=== PATIENT | female | born 1950 ===

== ENCOUNTER 2018-10-17 18:01 | Emergency (ER) | payer MEDICARE, BC ==
[2018-10-17] MEDS ORDERED: Dextrose 5%-0.9% NaCl 1,000 ML IV SCH (18:30)
--- NOTE | 2018-10-17 18:50 | EDM.PDOC ---
ED HPI GENERAL MEDICAL PROBLEM - General Chief Complaint: Neuro Symptoms/Deficits Stated Complaint: VISION PROBLEMS/HEAD PAIN/L SIDE NUMBNESS Time Seen by Provider: 10/17/18 18:21 Source of Information: Reports: Patient, Family (spouse) History Limitations: Reports: No Limitations - History of Present Illness INITIAL COMMENTS - FREE TEXT/NARRATIVE: 68-year-old female attends the ED due to very blurred vision this morning when she first got up. She was unable to read a magazine or written word at all. This provoked her to set up an correctional counselor/case manager appointment and she's did see Dr. Humphrey and had a complete eye examination. No abnormalities were found in terms that her peripheral vision was apparently normal. There was no glaucoma and there was no retinal disease. Was advised to seek further medical care particular for central nervous system imaging to make sure there was no increased intracranial pressure and pituitary tumor pressing on the optic chiasm to cause her current problems although the patient does not report any diplopia. Secondly she has some pain in her left forehead left scott-face that radiates down her left neck into her left arm. Patient has known severe degenerative disc disease in her cervical spine. She therefore presented with some concerns about a stroke. Of course strokes do not cause pain. Patient used to weigh 124 pounds but since multiple back surgeries she is currently down to 98 pounds. She is not on a lot of medications. My concern with her history is whether she is suffering anticholinergic effect of medication to cause transient blurred vision. Neuro exam was grossly normal. Is having no trouble with her speech and no trouble walking. She does have some paresthesias in both arms and hands which may or may not be carpal tunnel syndrome related versus cervical spine joint of disc disease related. Onset: Today Onset Date: 10/17/18 Onset Time: 08:00 Duration: Hour(s): Location: Reports: Face (Blurred vision both eyes this morning making it impossible to read a magazine. Left hemifacial pain rating across her left lateral neck down into her left), Neck ( seems to be coming from her cervical spine. chronic neck pain), Back (Chronic low back pain), Upper Extremity, Left ( upper extremity.) Quality: Reports: Other (Pain in the arm is) Severity: Moderate (deep aching with occasional sharp lancinating pain) Improves with: Reports: Other (Blurred vision has improved as the day has gone on.) Worsens with: Reports: Movement (Movements will make her neck pain worse and her left arm pain worse suggesting radiculopathy.) Context: Denies: Activity, Exercise, Lifting, Sick Contact, Trauma, Other Associated Symptoms: Denies: No Other Symptoms, Confusion, Chest Pain, Cough, cough w sputum, Diaphoresis, Fever/Chills, Headaches, Loss of Appetite, Malaise , Nausea/Vomiting, Rash, Seizure, Shortness of Breath, Syncope Treatments [employer]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 (see below) (Only her usual medications.) - Related Data Allergies Allergy/AdvReac Type Severity Reaction Status Date / Time No Known Allergies Allergy Verified 10/17/18 18:23 Home Meds: Home Meds Beta-Carotene(A) W-C & E/Min [Vision Vitamins] 1 each PO DAILY 10/17/18 [History ] Biotin 1 mg PO DAILY 10/17/18 [History] Cholecalciferol (Vitamin D3) [Vitamin D3] 1,000 unit PO DAILY 10/17/18 [History] DULoxetine HCl [Duloxetine HCl] 30 mg PO DAILY 10/17/18 [History] Flecainide Acetate 50 mg PO BID 10/17/18 [History] Ibuprofen 800 mg PO TID PRN 10/17/18 [History] Magnesium Gluconate 27 mg PO DAILY 10/17/18 [History] Thiamine HCl [Vitamin B-1] 250 mg PO DAILY 10/17/18 [History] Vitamin B6-pyridOXINE 100 mg PO DAILY 10/17/18 [History] hydroCHLOROthiazide [Hydrochlorothiazide] 12.5 mg PO DAILY 10/17/18 [History] Past Medical History Cardiovascular History: Reports: Arrhythmia (Currently on Tiffany and 950 mg twice a day.), Hypertension Social & Family History - Living Situation & Occupation Living situation: Reports: (Currently here in [employer] babysitting grand children. Currently her retired from [employer] and moved to [place]. ) Occupation: Retired ED ROS GENERAL - Review of Systems Review Of Systems: See Below Constitutional: Reports: Malaise, Fatigue, Weight Loss (Stable weight at 98 pounds.), Other (Feel she has a good appetite.). Denies: Fever, Chills HEENT: Reports: Glasses (Blurred vision), Other. Denies: Ear Pain, Eye Discharge, Eye Pain, Hearing Loss, Nosebleed, Nose Pain, Rhinitis, Throat Pain, Throat Swelling Respiratory: Reports: No Symptoms Cardiovascular: Reports: Lightheadedness ( sometimes aware of palpitations.), Palpitations (Has a chronic arrhythmia), Other Endocrine: Reports: Fatigue GI/Abdominal: Reports: No Symptoms : Reports: No Symptoms Musculoskeletal: Reports: Neck Pain, Shoulder Pain, Arm Pain (Left side left arm pain), Back Pain, Hand Pain (And numbness and tingling both sides.) Skin: Reports: No Symptoms ( Unclear if this represents carpal tunnel or is referred pain from her cervical spine.) Neurological: Reports: Numbness, Paresthesia ( suggesting to me that she has carpal tunnel syndromeboth upper extremities primarily her hands. ), Tingling ( In both upper extremities to her hands) Psychiatric: Reports: Anxiety Hematologic/Lymphatic: Reports: No Symptoms Immunologic: Reports: No Symptoms ED EXAM, NEURO - Physical Exam Exam: See Below Exam Limited By: No Limitations General Appearance: Alert, WD/WN, Anxious (Mildly anxious.) Eye Exam: Bilateral Eye: Normal Fundi, Normal Inspection, PERRL (No diplopia or gaze palsy) Throat/Mouth: Normal Inspection, Normal Lips, Normal Oropharynx, Other Head Exam: Atraumatic (Uvula is in the midline), Normocephalic Neck: Normal Inspection, Supple, Limited Range of Motion, Tender Lateral ( Bilaterally particularly lower cervical spine.). No: Full Range of Motion, Lymphadenopathy (L), Lymphadenopathy (R) Respiratory/Chest: Lungs Clear, Normal Breath Sounds (Mild tachypnea but O2 sats 100%. She is mildly anxious.), Chest Non-Tender, Respiratory Distress Cardiovascular: Normal Peripheral Pulses, No Edema ( but the fact that she is on plaque and 9 suggests that these are PVCs.), No Gallop, No Murmur, No Rub, Irregularly Irregular (Has occasional ectopic beats. She was not on the monitor at the time of my examination) GI/Abdominal: Normal Bowel Sounds, Soft, Non-Tender, No Organomegaly, No Abnormal Bruit, No Mass Neurological: Alert, Normal Dorsiflexion, CN II-XII Intact, Normal Plantar Flexion, Normal Gait, Normal Reflexes, No Motor/Sensory Deficits, Oriented x 3. No: Difficulty Walking Back Exam: Decreased Range of Motion, Other (Multiple surgical scars lumbar spine.) Extremities: Normal Inspection, Normal Range of Motion, Non-Tender Psychiatric: Anxious Skin Exam: Warm, Dry, Intact, Normal Color, No Rash EKG INTERPRETATION EKG Date: 10/17/18 Time: 18:33 Rhythm: NSR Rate (Beats/Min): 64 [place]: Normal P-Wave: Enlarged (Consider mild left atrial hypertrophy.) QRS: Normal ST-T: Normal QT: Normal EKG Interpretation Comments: Essentially normal ECG Course - Vital Signs Last Recorded V/S: Last Vital Signs Temp 36.2 C 10/17/18 18:13 Pulse 72 10/17/18 18:13 Resp 20 10/17/18 18:13 BP 188/108 H 10/17/18 18:13 Pulse Ox 100 10/17/18 18:13 - Orders/Labs/Meds Orders: Active Orders 24 hr Category Date Time Status EKG Documentation Completion [RC] STAT Care 10/17/18 18:22 Active Chest 1V Frontal [CR] Stat Exams 10/17/18 18:22 Taken SEDIMENTATION RATE AUTO [HEME] Stat Lab 10/17/18 18:30 Received Dextrose 5%-0.9% NaCl [Dextrose 5%-Normal Saline] 1,000 Med 10/17/18 18:30 Active ml IV ASDIRECTED Medication Orders Dextrose/Sodium Chloride (Dextrose 5%-Normal Saline) 1,000 mls @ 150 mls/hr IV ASDIRECTED KIMBERLYN Last Admin: 10/17/18 19:23 Dose: 150 mls/hr Labs: Laboratory Tests 10/17/18 10/17/18 10/17/18 Range/Units 18:24 18:30 18:30 WBC 6.43 (3.98-10.04) K/mm3 RBC 3.86 L (3.98-5.22) M/mm3 Hgb 13.7 (11.2-15.7) gm/L Hct 40.1 (34.1-44.9) % MCV 103.9 H (79.4-94.8) fl MCH 35.5 H (25.6-32.2) pg MCHC 34.2 (32.2-35.5) g/dl RDW Std Deviation 44.8 (36.4-46.3) fL Plt Count 206 (182-369) K/mm3 MPV 8.8 L (9.4-12.3) fl Neutrophils % (Manual) 44 (40-60) % Band Neutrophils % 0 (0-10) % Lymphocytes % (Manual) 47 H (20-40) % Atypical Lymphs % 0 % Monocytes % (Manual) 4 (2-10) % Eosinophils % (Manual) 4 (0.7-5.8) % Basophils % (Manual) 1 (0.1-1.2) Platelet Estimate Adequate Plt Morphology Comment Normal RBC Morph Comment Normal PT 10.3 (9.5-12.1) SECONDS INR 0.94 APTT 25 (24-31) SECONDS Sodium (136-145) mEq/L Potassium (3.5-5.1) mEq/L Chloride (98-107) mEq/L Carbon Dioxide (21-32) mEq/L Anion Gap (5-15) BUN (7-18) mg/dL Creatinine (0.55-1.02) mg/dL Est Cr Clr Drug Dosing mL/min Estimated GFR (MDRD) (>60) mL/min BUN/Creatinine Ratio (14-18) Glucose (80-115) mg/dL POC Glucose 91 (80-115) mg/dL Calcium (8.5-10.1) mg/dL Magnesium (1.8-2.4) mg/dl Total Bilirubin (0.2-1.0) mg/dL AST (15-37) U/L ALT (14-59) U/L Alkaline Phosphatase (46-116) U/L CK-MB (CK-2) (0-3.6) ng/ml Troponin I (0.00-0.056) ng/mL C-Reactive Protein (<1.0) mg/dL Total Protein (6.4-8.2) g/dl Albumin (3.4-5.0) g/dl Globulin gm/dL Albumin/Globulin Ratio (1-2) 10/17/18 Range/Units 18:30 WBC (3.98-10.04) K/mm3 RBC (3.98-5.22) M/mm3 Hgb (11.2-15.7) gm/L Hct (34.1-44.9) % MCV (79.4-94.8) fl MCH (25.6-32.2) pg MCHC (32.2-35.5) g/dl RDW Std Deviation (36.4-46.3) fL Plt Count (182-369) K/mm3 MPV (9.4-12.3) fl Neutrophils % (Manual) (40-60) % Band Neutrophils % (0-10) % Lymphocytes % (Manual) (20-40) % Atypical Lymphs % % Monocytes % (Manual) (2-10) % Eosinophils % (Manual) (0.7-5.8) % Basophils % (Manual) (0.1-1.2) Platelet Estimate Plt Morphology Comment RBC Morph Comment PT (9.5-12.1) SECONDS INR APTT (24-31) SECONDS Sodium 140 (136-145) mEq/L Potassium 4.2 (3.5-5.1) mEq/L Chloride 103 (98-107) mEq/L Carbon Dioxide 28 (21-32) mEq/L Anion Gap 13.2 (5-15) BUN 21 H (7-18) mg/dL Creatinine 0.8 (0.55-1.02) mg/dL Est Cr Clr Drug Dosing 52.28 mL/min Estimated GFR (MDRD) > 60 (>60) mL/min BUN/Creatinine Ratio 26.3 H (14-18) Glucose 97 (80-115) mg/dL POC Glucose (80-115) mg/dL Calcium 9.2 (8.5-10.1) mg/dL Magnesium 1.9 (1.8-2.4) mg/dl Total Bilirubin 0.4 (0.2-1.0) mg/dL AST 28 (15-37) U/L ALT 28 (14-59) U/L Alkaline Phosphatase 55 (46-116) U/L CK-MB (CK-2) 3.3 (0-3.6) ng/ml Troponin I < 0.017 (0.00-0.056) ng/mL C-Reactive Protein < 0.2 (<1.0) mg/dL Total Protein 7.2 (6.4-8.2) g/dl Albumin 3.6 (3.4-5.0) g/dl Globulin 3.6 gm/dL Albumin/Globulin Ratio 1.0 (1-2) Meds: Medications Generic Name Dose Route Start Last Admin Trade Name Freq PRN Reason Stop Dose Admin Dextrose/Sodium Chloride 1,000 mls @ 150 mls/hr 10/17/18 18:30 10/17/18 19:23 Dextrose 5%-Normal Saline IV 150 mls/hr ASDIRECTED KIMBERLYN Administration - Radiology Interpretation Free Text/Narrative:: 68-year-old female presents to the ED primarily at the request of her correctional counselor/case manager. She presented to her correctional counselor/case manager today because when she awoke this morning she had such blurred vision that she could not read written [place] etc. She had a complete eye examination and no abnormalities were identified in terms of glaucoma. Peripheral vision screen apparently was normal and no retinal disease was identified. She is noted to have bilateral cataracts which are not in need of removal at this time. She has a left hemifacial pain starting therefore and left scott-face rating down her anterior lateral neck on the left side into her left arm. Patient has known severe degenerative disc disease in her cervical spine. She has had multiple surgeries on her lumbar spine due to degenerative disc disease and osteoporosis. There is some concerns initially that she may be having a stroke. However with pain in her left upper extremity is likely referred to radiculopathy from her left neck. Complete neurologic examination was normal and I could find no abnormalities of her eyes in terms of gaze palsy or diplopia or pupillary dysfunction. Plan she will have CT head CT cervical spine and routine labs performed. I suspect by history that she is suffering anticholinergic side effects from some medication. On review her medication list he only medication that is suspect would be her Cymbalta 30 mg a day. With her weight down to 90 pounds she is very sensitive to medications. Her flecainide dose was recently decreased due to her weight loss. - Re-Assessments/Exams Free Text/Narrative Re-Assessment/Exam: 10/17/18 19:10: CT cervical spine reveals advanced degenerative changes particularly from C3-C7. There is mild disc space narrowing noted at the C3-4 level with severe disc space narrowing noted at C4-5, C5-6 and C6-7 levels. Posterior osteophytes are seen at these levels mild anterior osteophytes are also noted at these same levels. There is moderate bilateral neural foraminal narrowing seen at C5-6 slightly worse on the right than on the left side. Moderate bilateral neural foraminal stenosis is noted also at the C6-7 level. No central canal stenosis is appreciated at her degenerative apophyseal changes seen. Degenerative spurring is noted within the uncovertebral joints at C4-5, C5 -6 and C6-[address] of the brain reveals ventricles along the basal cisterns and sulci over the convex increased to be mildly prominent. No abnormal parenchymal densities are seen. No evidence of intracranial hemorrhage or midline shift or mass effect is seen to suggest intracranial hypertension. There is mild diffuse small vessel ischemic changes in both basal ganglia. Bone window settings were reviewed which shows no acute calvarial abnormality appreciated in no sign of pituitary enlargement. Moderate mucosal thickening is seen within the left side of the sphenoid sinus. Moderate mucosal thickening is noted within the visualized left maxillary sinus and mild mucosal thickening is seen in the right maxillary sinus as well. Mucosal thickening is also noted within the anterior left ethmoid sinuses. No air-fluid levels are seen within the paranasal sinuses. No acute intracranial abnormality was identified 10/17/18 19:46 Labs are back really reveal a normal white count at 6.43. Differential is 44% neutrophils no bands and 47% lymphocytes suggestive of possible viral infection. MCV is elevated at 103.9. Platelet count is 206,000. PT was 10.3 with an INR of 0.94 PTT is 25. Sodium 140 with potassium of 4.2. Chloride 103 with a bicarbonate of 28. And a gap is normal at 13.2. BUN is 21 with a creatinine of 0.8. GFR remains greater than 60. BUN/creatinine ratio is mildly elevated suggesting mild dehydration today. It is 26.3. Glucose was 97. Calcium is 9.2. Magnesium is 1.9. Liver function is normal. CK-MB fraction 3.3 troponin I is less than 0.017. C-reactive protein less than 0.2. Total protein is 7.2 with an albumin fraction of 3.6. 10/17/18 20:14 past the findings with the patient and her and her daughter. Essentially we did not come to any consensus as to the cause of transient blurred vision. She takes her Cymbalta in the morning usually early like around 0630 hrs. and therefore I have a difficult time blaming it for her blurred vision. The blurred vision lasted from both 0430 hrs. until about 10 or 11:00 this morning. I can find no neurologic or Cardiologic reason for transient blurred vision. I've advised the patient that she should have her carotid arteries ultrasounded to make sure there is no significant blockage. She takes no sleep aids such as Benadryl that would cause anticholinergic side effects. At this point time adopt a wait and see approach as to if she continues to have problems then further investigations such as CTA may be required. Departure - Departure Time of Disposition: 20:16 Disposition: Home, Self-Care 01 Condition: Fair Clinical Impression: Blurred vision, bilateral - Discharge Information *PRESCRIPTION DRUG MONITORING PROGRAM REVIEWED*: Not Applicable Instructions: Blurred Vision, Adult Forms: ED Department Discharge Additional Instructions: Evaluation the emergency room today in regards to developing blurred vision this morning that limited your ability to read written material particularly in a book or magazine. This lasted a good 6 hours 7 hours before it seemed to dissipate. 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 CT of the brain is within normal limits showing no intracranial hypertension or mass effect or pituitary gland enlargement. CT of the cervical spine reveals advanced degenerative degenerative changes particularly disc disease from C4- C7. There is significant neural foraminal encroachment at the C6-7 level worse on the right side as compared to the left. Right iliac monitoring in the ED revealed sinus rhythm with occasional PVCs. It therefore appears that her flecainide is working well. The only medication that would have an anticholinergic effect which would affect her ability to accommodate i.e. open and closure pupil would be the Cymbalta but if you take it first thing in the morning it's difficult for me to state that it is the culprit. None of your other medications would interfere with ability to accommodate or change the amount of light entering the eye which could cause blurred vision. Blood pressure is running a bit high particularly on the top number. I would consistently check your blood pressure and if it remains elevated perhaps blood pressure pill daily is indicated to prevent the labile which means up and down blood pressure current switch may or may not be playing a role in blurred vision. Suggest follow-up with your personal care physician for ultrasound of your carotid arteries when you get back home. - My Orders Last 24 Hours: My Active Orders 10/17/18 18:22 EKG Documentation Completion [RC] STAT Chest 1V Frontal [CR] Stat 10/17/18 18:30 SEDIMENTATION RATE AUTO [HEME] Stat Dextrose 5%-0.9% NaCl [Dextrose 5%-Normal Saline] 1,000 ml IV ASDIRECTED - Assessment/Plan Last 24 Hours: My Active Orders 10/17/18 18:22 EKG Documentation Completion [RC] STAT Chest 1V Frontal [CR] Stat 10/17/18 18:30 SEDIMENTATION RATE AUTO [HEME] Stat Dextrose 5%-0.9% NaCl [Dextrose 5%-Normal Saline] 1,000 ml IV ASDIRECTED
--- NOTE | 2018-10-17 19:15 | CT ---
Head CT Technique: Multiple axial sections through the brain were obtained. Intravenous contrast was not utilized. Comparison: No prior intracranial imaging is available. Findings: Ventricles along with basal cisterns and sulci over the convexities are mildly prominent. No abnormal parenchymal densities are seen. No evidence of intracranial hemorrhage. No midline shift or mass effect is seen. Bone window settings were reviewed which shows no acute calvarial abnormality. Moderate mucosal thickening is seen within the left side of the sphenoid sinus. Moderate mucosal thickening is noted within the visualized left maxillary sinus with mild mucosal thickening seen within the right maxillary sinus. Mucosal thickening also noted within the anterior left ethmoid sinuses. No air-fluid levels are seen within the paranasal sinuses. Atherosclerotic calcification is seen within the carotid siphon. Impression: 1. Paranasal sinus disease likely chronic. 2. No acute intracranial abnormality is identified. Diagnostic code #2
--- NOTE | 2018-10-17 19:15 | CT ---
CT cervical spine Technique: Multiple axial sections were obtained from above C1 inferiorly to the bottom of T2. Reconstructed sagittal and coronal images were reviewed. Comparison: No prior cervical spine imaging. Findings: No fracture is identified. No abnormal subluxation is seen. Mild disc space narrowing is noted at C3-4. Severe disc space narrowing is noted C4-5, C5-6 and C6-7. Posterior osteophytes are seen at the same levels. Mild anterior osteophytes are also noted at these same levels. Moderate bilateral neural foraminal narrowing is seen at C5-6 slightly worse on the right than on the left side. Moderate bilateral neural foraminal stenosis is also noted at C6-7. No central canal stenosis is noted. Scattered degenerative apophyseal change is seen. Degenerative spurring is noted within the uncovertebral joints at C4-5, C5-6 and C6-7. Impression: 1. Fairly diffuse degenerative change as noted above. 2. Nothing acute is seen. Diagnostic code #3
--- NOTE | 2018-10-18 06:42 | CR ---
Chest: Portable view of the chest was obtained. Comparison: Prior chest x-ray of 07/03/15. Heart size is normal. Upper mediastinum is normal. Lungs show no acute parenchymal change. Bony structures are grossly intact. Impression: 1. Nothing acute is seen on portable chest x-ray. Diagnostic code #1
== END 2018-10-17 20:30 | disposition home or self-care (01) ==
LOC: JD.ED 18:01
DX: H53.8 Other visual disturbances (principal); Z79.899 Other long term (current) drug therapy
CPT/HCPCS: 36415; 70450; 71045; 72125; 80053; 82553; 82962; 83735; 84484; 85007; 85027; 85610; 85652; 85730; 86140; 93005; 96360; 99284; J7042; 93010